=== PATIENT | male | born 1980 | race Caucasian/White ===

== ENCOUNTER 2016-09-01 15:36 | Emergency (ER) | payer OTHER | END 2016-09-01 18:46 | disposition home or self-care (01) | LOC: ER 15:36 | DX: S51.842A Puncture wound with foreign body of left forearm, initial encounter (principal); W26.0XXA Contact with knife, initial encounter; W45.8XXA Other foreign body or object entering through skin, initial encounter; F43.10 Post-traumatic stress disorder, unspecified; I10 Essential (primary) hypertension; F41.9 Anxiety disorder, unspecified; Z79.899 Other long term (current) drug therapy | CPT/HCPCS: 20103; 96372; 99070; 99282-25 ==